=== PATIENT | male | born 1930 | race Caucasian/White ===

== ENCOUNTER 2016-05-17 14:00 | Inpatient (IN) | payer MEDICARE, OTHER ==
[~2016-05-17 14:00] MED LIST: ACTOS45 M1 PO; ACTOS45 MG PO; AFRIN15 ML; AMLODIPINE BES2.5 M1 PO; ANACIN TABLET1 TAB; ANORO ELLIPTA1 EAC1 INH; ATORVASTATIN CA40 M1 PO; CELEBREX200 MG PO; COMPLEX B-1001 EACH PO; COUMADIN4 MG; DETROL LA4 MG; FLOMAX0.4 M1 PO; FLOMAX0.4 MG; FLOVENT DISKUS50 MCG INH; FLUTICASONE PRO16 G1; GLUCOPHAGE500 M3 PO; GLUCOPHAGE500 MG PO; H; HYDROCODONE-AP1 EACH PO; IPRAT-ALBUT 0.5-3 ML INH; IPRATROPIUM BRO15 M1; LIPITOR40 MG PO; NAPROSYN125 MG/5 M; NORCO 5-325 TA1 EACH PO; OMEGA-31000 MG; PRADAXA150 M1 PO; PRADAXA150 MG PO; PROAIR HFA8.5 GM INH; PROTONIX40 M2 PO; SPIRONOLACTONE25 M2 PO; TAMIFLU75 MG/CAP PO; TOPROL XL100 M1 PO; TOPROL XL100 MG; TOPROL XL50 MG PO; TORSEMIDE20 M2 PO; ULTRAM50 MG PO; UROXATRAL10 MG PO; ZERTEC; ZOCOR40 MG
[2016-05-17] MEDS ORDERED: LANOXIN125 MC3 PO (14:58)
[2016-05-17] MEDS ORDERED: TRAZODONE HCL50 M1 PO (16:07)
[2016-05-17] MEDS ORDERED: TESSALON PERLE100 M1 PO (16:07)
[2016-05-17 17:47] LABS: BASO % 0.7 % (0-2); BASO ABSOLUTE COUNT 0.1 tho/cmm (0.0-0.2); EOS % 2.6 % (0-7); EOSINOPHIL ABSOLUTE COUNT 0.2 tho/cmm (0.0-0.7); HCT-HEMATOCRIT 35.3 % (36.0-53.5); HGB-HEMOGLOBIN 10.4 gm/dl (13.5-17.0); IMMATURE GRANULOCYTES ABSOLUTE 0.02 tho/cmm (0-0.03); IMMATURE GRANULOCYTES PERCENT 0.3 % (0-0.3); LYMPH % 17.4 % (20-45); LYMPH ABSOLUTE COUNT 1.3 tho/cmm (0.8-4.5); MCH (MEAN CORPUSCULAR HGB) 24.4 pg (28.0-32.0); MCHC MEAN CORPUSCULAR HGB CONC 29.5 % (32.0-36.0); MCV (MEAN CELL VOLUME) 82.9 fl (82.0-96.0); MEAN PLATELET VOLUME 9.9 cmc (9.4-12.4); MONOCYTE ABSOLUTE COUNT 0.5 tho/cmm (0.0-1.2); NEUTROPHIL ABSOLUTE COUNT 5.4 tho/cmm (1.6-8.0); NEUTROPHIL-AUTOMATED 5.4 tho/cmm (1.6-8.0); PLATELET COUNT 363 tho/cmm (150-450); RED BLOOD COUNT 4.26 mil/cmm (4.40-5.70); RED CELL DISTRIBUTION WIDTH 17.7 % (12.4-16.4); WHITE BLOOD COUNT 7.4 tho/cmm (4.0-10.0)
[2016-05-17 17:59] LABS: ALB/GLOB RATIO 0.7 (0.8-2.0); ALBUMIN 3.3 g/dl (3.5-5.0); ALKALINE PHOSPHATASE 53 U/L (33-138); ALT/SGPT 24 U/L (12-78); ANION GAP 11 mmol/L (0-20); AST/SGOT 27 U/L (10-40); BILIRUBIN,TOTAL 0.7 mg/dl (0.0-1.5); BLOOD UREA NITROGEN 45 mg/dl (6-24); CALCIUM 9.2 mg/dl (8.5-10.5); CARBON DIOXIDE-VENOUS 35 mmol/L (22-32); CHLORIDE 95 mmol/l (96-110); CREATININE 2.01 mg/dl (0.60-1.30); GLUCOSE 170 mg/dL (70-110); SODIUM 137 mmol/L (135-145); eGFR VALUE FOR BLACK 34 mL/Min
[2016-05-17 18:16] LABS: PROCALCITONIN 0.13 ng/ml (0.05-0.09)
[2016-05-18 11:11] LABS: ANION GAP 14 mmol/L (0-20); BLOOD UREA NITROGEN 38 mg/dl (6-24); CALCIUM 9.3 mg/dl (8.5-10.5); CARBON DIOXIDE-VENOUS 30 mmol/L (22-32); CHLORIDE 97 mmol/l (96-110); CREATININE 1.62 mg/dl (0.60-1.30); POTASSIUM 3.6 mmol/L (3.7-5.1); SODIUM 137 mmol/L (135-145); eGFR VALUE FOR BLACK 45 mL/Min
[2016-05-18 11:16] LABS: GLUCOSE 264 mg/dL (70-110)
[2016-05-18 22:03] LABS: MAGNESIUM 1.6 mg/dl (1.3-2.6); PHOSPHOROUS 1.7 mg/dl (2.5-4.9)
[2016-05-19 03:50] LABS: ANION GAP 12 mmol/L (0-20); BLOOD UREA NITROGEN 38 mg/dl (6-24); CALCIUM 8.8 mg/dl (8.5-10.5); CARBON DIOXIDE-VENOUS 32 mmol/L (22-32); CHLORIDE 101 mmol/l (96-110); CREATININE 1.58 mg/dl (0.60-1.30); GLUCOSE 192 mg/dL (70-110); MAGNESIUM 1.8 mg/dl (1.3-2.6); PHOSPHOROUS 2.2 mg/dl (2.5-4.9); POTASSIUM 4.1 mmol/L (3.7-5.1); SODIUM 141 mmol/L (135-145); eGFR VALUE FOR BLACK 46 mL/Min
[2016-05-19] MEDS ORDERED: ASPIRIN EC81 MG PO (11:15)
[2016-05-19] MEDS ORDERED: PREDNISONE20 M1 PO (11:17)
[2016-11-06] MEDS ORDERED: ULTRAM50 M1 PO (14:51)
[2016-11-06] MEDS ORDERED: LYRICA50 MG/CAP PO (14:52)
[2016-11-06] MEDS ORDERED: TRIAMCINOLONE A15 G2 TP (14:55)
[2016-11-06] MEDS ORDERED: NEURONTIN300 M1 PO (16:13)
[2016-11-06] MEDS ORDERED: IRON325 M3 PO (16:14)
[2016-11-06] MEDS ORDERED: TYLENOL EXTRA500 M1 PO (16:14)
[2016-11-06] MEDS ORDERED: ALEVE220 M4 PO (16:15)
[2016-11-08] MEDS ORDERED: POTASSIUM CHLO20 ME3 PO (11:33)
[2016-11-08] MEDS ORDERED: PRINIVIL5 M1 PO (11:44)
== END 2016-05-19 11:54 | DRG 191 ==
LOC: CAR1 14:00
PROVIDERS: Hospitalist; Nurse Practitioner; Physician Assistant; ADMIT Internal Medicine
DX: J44.1 Chronic obstructive pulmonary disease with (acute) exacerbation (principal); I47.2 Ventricular tachycardia; N17.9 Acute kidney failure, unspecified; J96.11 Chronic respiratory failure with hypoxia; I25.82 Chronic total occlusion of coronary artery; E66.9 Obesity, unspecified; E87.5 Hyperkalemia; I25.5 Ischemic cardiomyopathy; I48.2 Chronic atrial fibrillation; Z99.81 Dependence on supplemental oxygen; I25.10 Atherosclerotic heart disease of native coronary artery without angina pectoris; R62.7 Adult failure to thrive; T46.0X5A Adverse effect of cardiac-stimulant glycosides and drugs of similar action, initial encounter; Y92.230 Patient room in hospital as the place of occurrence of the external cause; Z68.36 Body mass index [BMI] 36.0-36.9, adult; I12.9 Hypertensive chronic kidney disease with stage 1 through stage 4 chronic kidney disease, or unspecified chronic kidney disease; N18.9 Chronic kidney disease, unspecified; E11.22 Type 2 diabetes mellitus with diabetic chronic kidney disease; Z79.01 Long term (current) use of anticoagulants; Z79.84 Long term (current) use of oral hypoglycemic drugs; Z96.659 Presence of unspecified artificial knee joint
CPT/HCPCS: G0378; G0379; G8978-GP-CK; G8979-GP-CK; G8987-GO-CJ; G8988-GO-CI; G8989-GO-CJ; J1815; J2930; J7030

== ENCOUNTER 2016-11-14 22:10 | Observation (INO) | payer MEDICARE, OTHER ==
[~2016-11-14] VITALS: Ht 188 cm; Wt 110.4 kg
[~2016-11-14 22:10] MED LIST changes: +ALEVE220 M4 PO; +ASPIRIN EC81 MG PO; +IRON325 M3 PO; +LANOXIN125 MC3 PO; +LYRICA50 MG/CAP PO; +NEURONTIN300 M1 PO; +POTASSIUM CHLO20 ME3 PO; +PREDNISONE20 M1 PO; +PRINIVIL5 M1 PO; +TESSALON PERLE100 M1 PO; +TRAZODONE HCL50 M1 PO; +TRIAMCINOLONE A15 G2 TP; +TYLENOL EXTRA500 M1 PO; +ULTRAM50 M1 PO
[2016-11-14] MEDS ORDERED: ALDACTONE25 M1 PO (22:35)
[2016-11-14] MEDS ORDERED: FLOVENT HFA1 PUF1 INH (22:35)
[2016-11-15 08:10] LABS: BASO % 0.3 % (0-2); EOS % 1.1 % (0-7); EOSINOPHIL ABSOLUTE COUNT 0.1 tho/cmm (0.0-0.7); HCT-HEMATOCRIT 36.1 % (36.0-53.5); HGB-HEMOGLOBIN 11.9 gm/dl (13.5-17.0); IMMATURE GRANULOCYTES ABSOLUTE 0.05 tho/cmm (0-0.03); IMMATURE GRANULOCYTES PERCENT 0.5 % (0-0.3); LYMPH % 5.7 % (20-45); LYMPH ABSOLUTE COUNT 0.6 tho/cmm (0.8-4.5); MCH (MEAN CORPUSCULAR HGB) 32.1 pg (28.0-32.0); MCV (MEAN CELL VOLUME) 97.3 fl (82.0-96.0); MEAN PLATELET VOLUME 10.4 cmc (9.4-12.4); MONO % 5.3 % (0-12); MONOCYTE ABSOLUTE COUNT 0.6 tho/cmm (0.0-1.2); NEUTROPHIL ABSOLUTE COUNT 9.5 tho/cmm (1.6-8.0); NEUTROPHIL-AUTOMATED 9.5 tho/cmm (1.6-8.0); NEUTROPHILS % 87.1 % (40-80); PLATELET COUNT 160 tho/cmm (150-450); RED BLOOD COUNT 3.71 mil/cmm (4.40-5.70); RED CELL DISTRIBUTION WIDTH 14.9 % (12.4-16.4); WHITE BLOOD COUNT 10.9 tho/cmm (4.0-10.0)
[2016-11-15 08:25] LABS: ANION GAP 15 mmol/L (0-20); BLOOD UREA NITROGEN 44 mg/dl (6-24); CALCIUM 9.4 mg/dl (8.5-10.5); CARBON DIOXIDE-VENOUS 19 mmol/L (22-32); CHLORIDE 106 mmol/l (96-110); GLUCOSE 122 mg/dL (70-110); SODIUM 135 mmol/L (135-145); eGFR VALUE FOR BLACK 45 mL/Min
[2016-11-17 06:19] LABS: BLOOD UREA NITROGEN 45 mg/dl (6-24); CALCIUM 9.1 mg/dl (8.5-10.5); CHLORIDE 104 mmol/l (96-110); CREATININE 1.25 mg/dl (0.60-1.30); GLUCOSE 107 mg/dL (70-110); SODIUM 140 mmol/L (135-145); eGFR VALUE FOR BLACK 60 mL/Min
[2016-11-17 06:30] LABS: ANION GAP 11 mmol/L (0-20); CARBON DIOXIDE-VENOUS 29 mmol/L (22-32); POTASSIUM 3.8 mmol/L (3.7-5.1)
[2016-11-18 07:01] LABS: ANION GAP 13 mmol/L (0-20); BLOOD UREA NITROGEN 52 mg/dl (6-24); CALCIUM 8.7 mg/dl (8.5-10.5); CARBON DIOXIDE-VENOUS 26 mmol/L (22-32); CHLORIDE 108 mmol/l (96-110); GLUCOSE 114 mg/dL (70-110); SODIUM 142 mmol/L (135-145); eGFR VALUE FOR BLACK 49 mL/Min
[2016-11-18 07:03] LABS: POTASSIUM 5.1 mmol/L (3.7-5.1)
[2016-11-18] MEDS ORDERED: PERCOCET 5-3251 EACH PO (13:52)
[2016-11-18] MEDS ORDERED: MIRALAX17 G2 PO (13:55)
[2016-11-18] MEDS ORDERED: ZOFRAN4 M2 PO (14:01)
== END 2016-11-18 15:45 ==
LOC: EDMED → EDBD 22:10 → EDMED 22:10 → EMR2 11-15 01:12 → 5EB 11-15 01:12
PROVIDERS: ADMIT Family Medicine
DX: S32.591A Other specified fracture of right pubis, initial encounter for closed fracture (principal); I25.10 Atherosclerotic heart disease of native coronary artery without angina pectoris; I48.91 Unspecified atrial fibrillation; I11.0 Hypertensive heart disease with heart failure; I50.20 Unspecified systolic (congestive) heart failure; E11.9 Type 2 diabetes mellitus without complications; J44.9 Chronic obstructive pulmonary disease, unspecified; E78.5 Hyperlipidemia, unspecified; R53.1 Weakness; Z79.01 Long term (current) use of anticoagulants; Z79.899 Other long term (current) drug therapy; Z87.891 Personal history of nicotine dependence; Z79.84 Long term (current) use of oral hypoglycemic drugs; Z98.890 Other specified postprocedural states
CPT/HCPCS: G0378; G8978-GP-CJ; G8979-GP-CJ; G8980-GP-CJ; G8987-GO-CK; G8988-GO-CJ